=== PATIENT | male | born 1945 | race Caucasian/White ===

== ENCOUNTER 2021-04-01 22:35 | Emergency (ER) | payer MEDICARE, OTHER ==
[2021-04-01] MEDS ORDERED: Bacitracin Oint 1 GM U/D Packet TOP ONE (23:41)
--- NOTE | 2021-04-02 00:02 | EDM.PDOC ---
ED HPI GENERAL MEDICAL PROBLEM - General Chief Complaint: Skin Complaint Stated Complaint: FISHHOOK IN FINGER Time Seen by Provider: 04/01/21 23:41 Source of Information: Reports: Patient, Family (Daughter) History Limitations: Reports: No Limitations - History of Present Illness Onset: Today Duration: Hour(s):, Constant Location: Reports: Upper Extremity, Left (left thumb) Quality: Reports: Ache Severity: Mild Improves with: Reports: Immobilization Worsens with: Reports: Movement Associated Symptoms: Reports: No Other Symptoms Treatments [employer]: Reports: Home Treatments - Related Data Allergies Allergy/AdvReac Type Severity Reaction Status Date / Time No Known Allergies Allergy Verified 04/01/21 23:07 Home Meds: Home Meds Aspirin [Halfprin] 81 mg PO DAILY 04/01/21 [History] Clopidogrel [Plavix] 75 mg PO DAILY 04/01/21 [History] Ezetimibe 10 mg PO DAILY 04/01/21 [History] Multivit with Calcium,Iron,Min [One Daily with Calcium-Iron] 1 tab PO DAILY 04/01/21 [History] Simvastatin [Zocor] 40 mg PO BEDTIME 04/01/21 [History] Tamsulosin [Tamsulosin 24 Hr] 0.4 mg PO DAILY 04/01/21 [History] Past Medical History HEENT History: Reports: Impaired Vision Cardiovascular History: Reports: High Cholesterol, Hypertension, Stents Musculoskeletal History: Reports: Arthritis, Back Pain, Chronic, Fracture, Neck Pain, Chronic - Infectious Disease History Infectious Disease History: Reports: Chicken Pox Social & Family History - Tobacco Use Tobacco Use Status *Q: Never Tobacco User - Caffeine Use Caffeine Use: Reports: Coffee - Recreational Drug Use Recreational Drug Use: No - Living Situation & Occupation Occupation: Retired (lives in [place].) ED ROS GENERAL - Review of Systems Review Of Systems: See Below Constitutional: Reports: Other (left thumb pain) Skin: Reports: Other (fish hook) ED EXAM, SKIN/RASH Exam: See Below Exam Limited By: No Limitations General Appearance: Alert, WD/WN, No Apparent Distress Nose: Normal Mucosa Head: Atraumatic, Normocephalic Skin: Other (fish hook noted to the left thumb) Location, Skin: Other (left thumb) Characteristics: Other (f.b.- fish hook) Lymphatic: No Adenopathy ED SKIN PROCEDURES - Foreign Body Removal Consent Obtained:: Patient Performing Doctor:: Stacie Menezes Foreign Body Other Location Comment:: fish hook emir to left thumb Anesthesia Type: Local Complications:: No Course - Vital Signs Last Recorded V/S: Last Vital Signs Temp 97.4 F 04/01/21 23:08 Pulse 66 04/01/21 23:08 Resp 16 04/01/21 23:08 BP 146/73 H 04/01/21 23:08 Pulse Ox 99 04/01/21 23:08 - Orders/Labs/Meds Meds: Medications Discontinued Medications Generic Name Dose Route Start Last Admin Trade Name Aysha PRN Reason Stop Dose Admin Bacitracin 1 dose 04/01/21 23:41 04/01/21 23:51 Bacitracin Oint 1 Gm U/D Packet TOP 04/01/21 23:42 1 dose ONETIME ONE Administration Lidocaine HCl 5 ml 04/01/21 23:41 04/01/21 23:51 Lidocaine 1% 5 Ml Sdv INJECT 04/01/21 23:42 5 ml ONETIME ONE Administration Departure - Departure Time of Disposition: 23:58 Disposition: Home, Self-Care 01 Condition: Good Clinical Impression: Fish hook injury of left thumb Qualifiers: Encounter type: initial encounter Qualified Code(s): S69.92XA - Unspecified injury of left wrist, hand and finger(s), initial encounter - Discharge Information *PRESCRIPTION DRUG MONITORING PROGRAM REVIEWED*: Not Applicable *COPY OF PRESCRIPTION DRUG MONITORING REPORT IN PATIENT MT: Not Applicable Instructions: Puncture Wound Referrals: PCP,None [Primary Care Provider] - Forms: ED Department Discharge Care Plan Goals: Fish hook injury to left thumb -Td up to date -fish hook removed without complication -keep clean, bandage for 2 day, apply bacitracin ointment Return to ER for any increased pain, drainage, swelling, fever, chills, redness or any concerns Sepsis Event Note (ED) - Evaluation Sepsis Screening Result: No Definite Risk - Focused Exam Vital Signs: Vital Signs Temp Pulse Resp BP Pulse Ox 04/01/21 23:08 97.4 F 66 16 146/73 H 99 04/01/21 22:53 97.4 F 66 16 146/73 H 99 - Problem List & Annotations (1) Fish hook injury of left thumb SNOMED Code(s): 169114488 Code(s): S69.92XA - UNSP INJURY OF LEFT WRIST, HAND AND FINGER(S), INIT ENCNTR Status: Acute Priority: High Qualifiers: Encounter type: initial encounter Qualified Code(s): S69.92XA - Unspecified injury of left wrist, hand and finger(s), initial encounter - Problem List Review Problem List Initiated/Reviewed/Updated: Yes - Assessment/Plan Plan: Fish hook injury to left thumb -Td up to date -fish hook removed without complication -keep clean, bandage for 2 day, apply bacitracin ointment Return to ER for any increased pain, drainage, swelling, fever, chills, redness or any concerns
== END 2021-04-02 00:13 | disposition home or self-care (01) ==
LOC: JP.ED 22:35
DX: S60.352A Superficial foreign body of left thumb, initial encounter (principal); E78.00 Pure hypercholesterolemia, unspecified; I10 Essential (primary) hypertension; Z95.5 Presence of coronary angioplasty implant and graft; Z79.82 Long term (current) use of aspirin; Z79.02 Long term (current) use of antithrombotics/antiplatelets; Z79.899 Other long term (current) drug therapy; W45.8XXA Other foreign body or object entering through skin, initial encounter
CPT/HCPCS: 99282; 99283